=== PATIENT | male | born 1985 | race Caucasian/White ===

== ENCOUNTER → 2016-12-19 | Outpatient (CLI) | payer OTHER ==
[~2016-12-19] MED LIST: CEPHALEXIN500 M1 PO; CETIRIZINE; CLEOCIN HC150 MG/CAP PO; FLEXERIL; HYDROCODONE/APAP; LORTAB 5/500 501 TAB PO; NO HOME MEDICATIONS; NORCO 325 MG-51 TAB PO; NORCO 325 MG-7.1 TAB PO; NORCO PO; ROXICODONE 55 MG/TAB PO
== END ==
LOC: COL.LAB 14:18
DX: Z01.89 Encounter for other specified special examinations (principal)

== ENCOUNTER → 2017-07-10 | Outpatient (CLI) | payer OTHER | LOC: COL.RAD 17:00 | DX: N45.2 Orchitis (principal); N50.89 Other specified disorders of the male genital organs ==

== ENCOUNTER → 2024-07-17 | Outpatient (CLI) | payer OTHER | LOC: MHCPAIN 10:22 | DX: M54.12 Radiculopathy, cervical region (principal); M54.6 Pain in thoracic spine; M79.18 Myalgia, other site | CPT/HCPCS: G0463 ==

== ENCOUNTER → 2024-07-27 | Outpatient (CLI) | payer OTHER | LOC: MHCPAIN 09:37 | DX: M79.18 Myalgia, other site (principal); M54.14 Radiculopathy, thoracic region | CPT/HCPCS: J0665; J1010 ==